=== PATIENT | male | born 1960 | race Caucasian/White ===

== ENCOUNTER → 2024-02-28 | Outpatient (CLI) | payer BC ==
[2024-02-28] MEDS: REGADENOSON 0.4 MG/5 ML PF SYG IVP ONE (15:11)
--- NOTE | 2024-02-29 12:12 | HMCSR ---
APPROVED REPORT Height: 5 ft 11in Weight: 288 lbs TEST INDICATIONS CAD The imaging protocol used to acquire images was Rest Tc-99m/stress Tc-99m 1 day Consent: The procedure was explained and understood by the patient. Informerd consent was witnessed Oleg Jameson RN First, low dose rest was performed then high dose stress. RESTING DATA: The resting ekg shows: NSR Possible anteroseptal infarct Rest SPECT myocardial perfusion imaging was performed in supine position 89 minutes following the int ravenous injection of 11.3 mCi of Tc-99 Sestamibi. Time of rest injection: 09:20: Date: 02/28/2024 Time of rest imagin:49: Date: 02/28/2024 PHARMACOLOGIC STRESS: Pharmacologic stress test was performed by injecting regadenoson 0.4 mg IV push followed by the intra venous injection of 34 mCi of Tc-99 Sestamibi. Time of stress injection: 11:15: Date: 02/28/2024 Time of stress imagin:56: Date: 02/28/2024 Heart Rate at time of stress injection: 90 bpm. Gated Stress SPECT was performed 101 minutes after stress injection. The images were gated to evaluate regional wall motion and calculate left ventricular ejection fracti on. STRESS DETAILS Reason for Termination: Infusion complete Stress Symptoms: No chest pain or symptoms Max HR Achieved: 103 bpm % of APMHR Achieved: 66 Max Blood Pressure: 132/77 mmHg Stress ECG: NSR Conclusion No ischemia No infarct LV ejection fraction 62% Normal LV wall motion Normal LV size at rest and stress No increased lung uptake
== END | disposition home or self-care (01) ==
LOC: SHCH 09:03
PROVIDERS: ATTEND Internal Medicine Cardiovascular Disease
DX: I25.10 Atherosclerotic heart disease of native coronary artery without angina pectoris (principal)
CPT/HCPCS: 78452; 93017; J2785; A9500 ×2